=== PATIENT | female | born 1970 ===

== ENCOUNTER 2017-11-06 15:18 | Emergency (ER) | payer BC ==
--- NOTE | 2017-11-06 16:48 | ED ---
"Lower Extremity - HPI Summary HPI Summary: 47 yr old female with the complaint of left knee pain. Onset of pain was about 9 days ago. She fell landing on her right side on ice, but twisted the left knee. She has pain over the medial left knee area. Pain worse with weight bearing. Moderate in intensity. - History of Current Complaint Chief Complaint: UCLowerExtremity Stated Complaint: LEFT KNEE INJURY Time Seen by Provider: 11/06/17 16:01 Hx Last Menstrual Period: 2008 - Allergies/Home Medications Allergies/Adverse Reactions: Allergies Allergy/AdvReac Type Severity Reaction Status Date / Time CI Pigment Blue 63 Allergy Intermediate Hives Verified 11/06/17 16:01 [From Cymbalta] Codeine Allergy Intermediate Hives Verified 11/06/17 16:01 Duloxetine [From Cymbalta] Allergy Intermediate Hives Verified 11/06/17 16:01 Penicillins Allergy Intermediate Hives Verified 11/06/17 16:01 Home Medications: Home Medications Cetirizine* [ZyrTEC 10 MG TAB*] 1 tab DAILY 11/06/17 [History Confirmed 11/06/17 ] PMH/Surg Hx/FS Hx/Imm Hx Previously Healthy: Yes Cardiovascular History: Reports: Hx Hypertension - Surgical History Surgery Procedure, Year, and Place: ENDOMETRIOSIS SX. Back sx x2 2015 Infectious Disease History: No Infectious Disease History: Denies: Traveled Outside the [place] in Last 30 Days - Social History Occupation: Employed Full-time Alcohol Use: Rare Substance Use Type: Reports: None Smoking Status (MU): Never Smoked Tobacco Review of Systems Constitutional: Negative Positive: Other - knee pain All Other Systems Reviewed And Are Negative: Yes Physical Exam Triage Information Reviewed: Yes Vital Signs On Initial Exam: Initial Vitals Temp Pulse Resp BP Pulse Ox 99 F 77 18 116/84 97 11/06/17 16:02 11/06/17 16:02 11/06/17 16:02 11/06/17 16:02 11/06/17 16:02 Vital Signs Reviewed: Yes Appearance: Positive: Well-Appearing, No Pain Distress Skin: Positive: Warm, Skin Color Reflects Adequate Perfusion Head/Face: Positive: Normal Head/Face Inspection Eyes: Positive: EOMI ENT: Positive: Pharynx normal Neck: Positive: Supple, Nontender Respiratory/Lung Sounds: Positive: Clear to Auscultation, Breath Sounds Present Cardiovascular: Positive: RRR. Negative: Murmur Abdomen Description: Positive: Nontender Musculoskeletal: Positive: Other - left knee without effusion, bruise, redness. she is tender over the medial condyle of the femur and over the medial collateral ligament. Her patellas are symmetric bilateral without any evidence of being out of place. She extends and flexes knee without difficulty in ROM. Neurological: Positive: Sensory/Motor Intact, Alert, Oriented to Person Place, Time, CN Intact II-III, Normal Gait, Speech Normal Psychiatric: Positive: Normal - Geronimo Coma Scale Best Eye Response: 4 - Spontaneous Best Motor Response: 6 - Obeys Commands Best Verbal Response: 5 - Oriented Diagnostics - Vital Signs Vital Signs Temp Pulse Resp BP Pulse Ox 11/06/17 16:02 99 F 77 18 116/84 97 - Laboratory Lab Statement: Any lab studies that have been ordered have been reviewed, and results considered in the medical decision making process. - Radiology left knee Radiology Interpretation Completed By: Radiologist Lower Extremity Course/Dx - Course Course Of Treatment: 47 yr old female with pain medial knee without effusion, and after twisting 9 days ago without relief. - Diagnoses Provider Diagnoses: Internal derangement of knee Discharge - Discharge Plan Condition: Good Disposition: HOME Patient Education Materials: Knee Pain (ED) Referrals: Olivia Portillo MD [Primary Care Provider] - 2 Days Additional Instructions: [facility] | SOS 3.3 22 reviews Medical Clinic DirectionsWebsite Address: [address] [place] [address] "
--- NOTE | 2017-11-06 17:51 | RAD ---
INDICATION: Pain and swelling one week after a fall COMPARISON: None TECHNIQUE: 4 view radiograph of the left knee. FINDINGS: On the AP views the patella appears to be displaced laterally relative to the intercondylar groove of the femur. The remaining bones of the knee are otherwise intact and appropriately aligned. The joint spaces are properly maintained. There is no radiographic evidence of joint effusion. On the sunrise view of the knee there is subcortical lucency along the medial margin of the patella to a lesser extent there is some cortical lucency along the medial margin of the medial condyle. IMPRESSION: 1. Patella appears to be displaced laterally on some of the AP images. Please correlate to physical exam findings of patellar tracking syndrome. 2. No radiographic evidence of acute fracture. If the patient's symptoms persist, follow-up imaging is recommended.
[2017-11-06 18:15] VITALS: BP 113/86
== END 2017-11-06 18:16 | disposition home or self-care (01) ==
LOC: UCCORT 15:18
DX: S89.92XA Unspecified injury of left lower leg, initial encounter (principal); W19.XXXA Unspecified fall, initial encounter; Y93.9 Activity, unspecified; Y92.9 Unspecified place or not applicable; I10 Essential (primary) hypertension; Z88.5 Allergy status to narcotic agent; Z88.0 Allergy status to penicillin; Z88.8 Allergy status to other drugs, medicaments and biological substances
CPT/HCPCS: 99211; G0463